=== PATIENT | female | born 1995 | race Two or more races ===

== ENCOUNTER → 2020-03-06 | Outpatient (CLI) | payer OTHER ==
[2020-03-06 10:15] LABS: Basophils # (auto) 0 10 ^3/uL (0-0.2); Basophils % (auto) 0.4 % (0.0-2.0); Eosinophils # (auto) 0.5 10 ^3/uL (0-0.8); Eosinophils % (auto) 5.4 % (0.0-7.0); Hematocrit 42.9 % (36.0-46.0); Hemoglobin 14.6 g/dL (12.2-16.2); Lymphocytes # (auto) 2.1 10 ^3/uL (0.4-5.4); Lymphocytes % (auto) 24.2 % (10.0-50.0); Mean Corpuscular Hemoglobin 32.3 pg (28.0-32.0); Mean Corpuscular Volume 94.8 fL (80.0-100.0); Monocytes # (auto) 0.5 10 ^3/uL (0-1.3); Monocytes % (auto) 5.6 % (0.0-12.0); Neutrophils # (auto) 5.5 10 ^3/uL (1.6-8.6); Neutrophils % (auto) 64.4 % (37.0-80.0); Platelet Count (auto) 339 10^3/uL (140-450); Red Blood Cells 4.52 10^6/uL (4.0-5.20); Red Cell Distribution Width 13.2 % (11.8-14.3); White Blood Cell 8.6 10^3/uL (4.4-10.8)
[2020-03-06 10:58] LABS: Free T4 (Free Thyroxine) 0.95 ng/dL (0.89-1.76); Leuteinizing Hormone 5.3 IU/L
[2020-03-06 10:59] LABS: Follicle Stimulating Hormone 5.04 IU/L (SEE BELOW)
[2020-03-06 11:11] LABS: Cholesterol 199 mg/dL (< 200); HDL Cholesterol 55 mg/dL (40-59); LDL Cholesterol 135 mg/dL (< 100); Triglycerides 78 mg/dL (< 150)
== END | disposition home or self-care (01) ==
LOC: LAB 09:54
PROVIDERS: ATTEND Student in an Organized Health Care Education/Training Program
DX: L68.0 Hirsutism (principal); E05.90 Thyrotoxicosis, unspecified without thyrotoxic crisis or storm; R73.9 Hyperglycemia, unspecified
CPT/HCPCS: 36415; 80061; 83001; 83002; 83036; 84403; 84439; 84443; 85025